=== PATIENT | male | born 2000 | race Two or more races ===

== ENCOUNTER 2023-05-24 21:04 | Day surgery (SDC) | payer OTHER ==
[2023-05-24 21:17] VITALS: BMI 24.0
[2023-05-24] MEDS ORDERED: KETOROLAC TROMETHAMINE 30 MG/1 ML VIAL IVPUSH ONE (22:07)
[2023-05-24] MEDS ORDERED: ACETAMINOPHEN 325 MG TABLET (FP) PO ONE ×2 (22:10→22:36)
[2023-05-24 22:18] LABS: BASO % 0.1 % (0-2.0); HEMATOCRIT 47.4 % (35.4-49); HEMOGLOBIN 16.5 GM/dL (11.7-16.9); LYMPH % 19.1 % (8-40); MCH 29.4 pg (25.7-33.7); MCHC 34.8 g/dl (32.0-35.9); MEAN CELL VOLUME 84.5 fl (80-96); MEAN PLT VOLUME 8.3 fl (7.5-11.1); MONO % 7.1 % (3.8-10.2); NEUT % 71.7 % (42.8-82.8); PLATELET COUNT 188 10^3/uL (134-434); RBC 5.61 M/mm3 (4.00-5.60); RDW 12.9 % (11.9-15.9); WHITE BLOOD COUNT 13.8 K/mm3 (4.0-10.0)
[2023-05-24 22:29] LABS: INR 1.01 (0.83-1.09); PROTHROMBIN TIME (PATIENT) 11.7 SEC (9.7-13.0)
[2023-05-24 22:33] LABS: ACTIVATED PTT 34.4 SECONDS (25.2-36.5)
[2023-05-24] MEDS ORDERED: ACETAMINOPHEN 325 MG TABLET (FP) ONE (22:39)
[2023-05-24 22:40] LABS: CALCIUM 9.2 mg/dL (8.5-10.1)
[2023-05-24 22:41] LABS: BLOOD UREA NITROGEN 13.8 mg/dL (7-18)
[2023-05-24 22:43] LABS: CREATININE 0.8 mg/dL (0.55-1.3)
[2023-05-24 22:45] LABS: BILIRUBIN,TOTAL 0.3 mg/dL (0.2-1); TOT PROT 7.1 g/dl (6.4-8.2)
[2023-05-25] MEDS ORDERED: PIPERACILLIN/TAZOB 3.375 GM 3.375 GM in DEXTROSE 5%-WATER - 50 ML IVPB ONE (00:43)
[2023-05-25 00:59] LABS: PH,URINE 6.5 (5.0-8.0); URINE APPEARANCE CLEAR; URINE BILIRUBIN NEGATIVE (NEGATIVE); URINE COLOR YELLOW; URINE GLUCOSE (UA) NEGATIVE (NEGATIVE); URINE KETONE NEGATIVE (NEGATIVE); URINE LEUK ESTERASE NEGATIVE (NEGATIVE); URINE NITRITE NEGATIVE (NEGATIVE); URINE PROTEIN NEGATIVE (NEGATIVE); URINE UROBILINOGEN 0.2 mg/dL (0.2-1.0)
[2023-05-25] MEDS ORDERED: PIPERACILLIN/TAZOB 3.375 GM 3.375 GM/50 ML BAG IVPB ONE (03:25)
[2023-05-25] MEDS ORDERED: KETOROLAC TROMETHAMINE 15 MG/ML VIAL IVPUSH PRN ×2 (04:24→10:44)
[2023-05-25] MEDS ORDERED: SODIUM CHLORIDE 1,000 ML IV SCH (04:30)
[2023-05-25] MEDS: ACETAMINOPHEN 1000 MG/100 ML BAG IVPB SCH ×5 (04:50→22:20)
[2023-05-25] MEDS ORDERED: PROPOFOL 20 ML ONE (07:47)
[2023-05-25] MEDS ORDERED: LIDOCAINE HCL/PF 2% SDV 5ML VIAL ONE (07:47)
[2023-05-25] MEDS ORDERED: ROCURONIUM BROMIDE 50 MG/5 ML SYRINGE ONE (07:48)
[2023-05-25] MEDS ORDERED: MIDAZOLAM HCL 2 MG/2 ML SINGLE DOSE VIAL ONE (07:48)
[2023-05-25] MEDS ORDERED: SUCCINYLCHOLINE CHLORIDE 200 MG/10 ML SYRINGE ONE (07:48)
[2023-05-25] MEDS ORDERED: LIDOCAINE HCL 1%, 10 MG/ML (20ML VIAL) NR ONE ×3 (08:13→08:47)
[2023-05-25] MEDS ORDERED: BUPIVACAINE HCL/PF 0.5% (5MG/ML) 10 ML VIAL IJ ONE ×3 (08:14→08:47)
[2023-05-25] MEDS ORDERED: DEXAMETHASONE SOD PHOSPHATE 4 MG/1 ML VIAL ONE (08:35)
[2023-05-25] MEDS ORDERED: PIPERACILLIN/TAZOB 2.25 GM 2.25 GM in DEXTROSE 5%-WATER - 50 ML IVPB SCH (09:00)
[2023-05-25] MEDS ORDERED: ONDANSETRON 4 MG/2 ML VIAL ONE (09:08)
[2023-05-25] MEDS ORDERED: KETOROLAC TROMETHAMINE 30 MG/1 ML VIAL ONE (09:08)
[2023-05-25] MEDS ORDERED: ONDANSETRON 4 MG/2 ML VIAL IVPUSH PRN ×2 (09:34→10:44)
[2023-05-25] MEDS ORDERED: PROMETHAZINE HCL 25 MG/1 ML VIAL IVPB PRN ×2 (09:34→10:44)
[2023-05-25] MEDS ORDERED: ACETAMINOPHEN 1000 MG/100 ML BAG IVPB ONE (09:35)
[2023-05-25] MEDS ORDERED: LACTATED RINGERS SOLUTION 1,000 ML IV SCH (09:45)
[2023-05-25] MEDS ORDERED: ACETAMINOPHEN INJECTION 100 ML IVPB ONE (10:07)
[2023-05-25] MEDS ORDERED: PIPERACILLIN/TAZOBACTAM 2.25 GM VIAL IVPB ONE (10:10)
[2023-05-25] MEDS ORDERED: oxyCODONE HCL 5 MG TABLET PO PRN (10:44)
[2023-05-25] MEDS: LACTATED RINGERS SOLUTION 1,000 ML IV SCH ×3 (11:30→23:55)
[2023-05-25 11:46] VITALS: RESP 18
[2023-05-25 13:25] LABS: HEMATOCRIT 48.3 % (35.4-49); HEMOGLOBIN 15.6 GM/dL (11.7-16.9); MCH 28.4 pg (25.7-33.7); MCHC 32.4 g/dl (32.0-35.9); MEAN CELL VOLUME 87.6 fl (80-96); MEAN PLT VOLUME 9.2 fl (7.5-11.1); PLATELET COUNT 197 10^3/uL (134-434); RBC 5.51 M/mm3 (4.00-5.60); RDW 13.3 % (11.9-15.9); WHITE BLOOD COUNT 13.5 K/mm3 (4.0-10.0)
[2023-05-25 13:53] LABS: POTASSIUM 4.3 mmol/L (3.5-5.1)
[2023-05-25 13:55] LABS: ALBUMIN 3.6 g/dl (3.4-5.0); CALCIUM 9.1 mg/dL (8.5-10.1)
[2023-05-25 13:56] LABS: BLOOD UREA NITROGEN 11.3 mg/dL (7-18); MAGNESIUM 2.3 mg/dL (1.8-2.4)
[2023-05-25 13:58] LABS: CREATININE 0.8 mg/dL (0.55-1.3)
[2023-05-25 13:59] LABS: PHOSPHOROUS 2.2 mg/dL (2.5-4.9)
[2023-05-25 14:00] LABS: BILIRUBIN,TOTAL 1.2 mg/dL (0.2-1); TOT PROT 6.8 g/dl (6.4-8.2)
[2023-05-25] MEDS ORDERED: ONDANSETRON 4 MG/2 ML VIAL IVPUSH ONE (17:50)
[2023-05-26 06:44] VITALS: BP 113/61; PULSE 70; TEMP 97.5
[2023-05-26] MEDS ORDERED: PIPERACILLIN/TAZOB 2.25 GM 2.25 GM in DEXTROSE 5%-WATER - 50 ML IVPB SCH (09:00)
== END 2023-05-26 14:02 | disposition home or self-care (01) ==
LOC: JER 21:04 → UNDOADMIN 05-25 01:36 → JERBED 05-25 01:36 → J5S 05-25 06:55 → JERBED 05-25 06:55 → SUATTDRO 05-25 09:42 → JASUSAT 05-25 09:42 → J5S 05-25 09:48 → JASUSAT 05-26 14:02
PROC: 0DTJ4ZZ Resection of Appendix, Percutaneous Endoscopic Approach (ICD-10-PCS; principal; 2023-05-25 08:00)
DX: K35.80 Unspecified acute appendicitis (principal)
CPT/HCPCS: 36415; 74177-TC; 80053; 81003; 83690; 83735; 84100; 85025; 85027; 85610; 85730; 86850; 86900; 86901; 87086; 88304-TC; 93005; 93010; 94760; 99285-25